=== PATIENT | male | born 2000 | race African-American/Black ===

== ENCOUNTER 2018-05-31 11:32 | Emergency (ER) | payer OTHER, SELFPAY ==
[2018-05-31 11:34] VITALS: BP 128/71; PULSE 70; RESP 18; TEMP 36.4; O2SAT 100; BMI 23.8
--- NOTE | 2018-05-31 11:57 | RAD_ITS ---
STUDY: X-RAY - LEFT SHOULDER REASON FOR EXAM: Male, 17 years old. Pain. TECHNIQUE: 4 view(s) of the shoulder. COMPARISON: None. FINDINGS: Normal glenohumeral articulation. Normal acromioclavicular joint. Normal acromion. Normal humeral head and visualized proximal humerus. The soft tissue structures are unremarkable. There is no demonstrated fracture. Normal visualized pulmonary apex. RAD/Shoulder min 2 Views IMPRESSION: Normal x-ray examination of the shoulder. Electronically Signed: Philip Zaragoza MD at 12:18 EST , Service support ,
--- NOTE | 2018-05-31 13:34 | ED.VISSUMM ---
- ER Visit Summary Date of Service: 05/31/18 Chief Complaint: Left shoulder pain History of Present Illness: The patient is a 17 M with left shoulder pain after weight lifting. He was sent by his PCP for x-rays. The concern was dislocation. Patient feels that his shoulder is back into joint. No weakness or numbness. Physical Examination: Vitals unremarkable. A shoulder exam normal. Sensation normal. Neurovascular intact distally. Good range of motion. Good strength and sensation. Test Results: X-rays negative. Emergency Department Course and Treatment: Patient declined pain medicine. Sling as needed for comfort. Range of motion exercises. Anti-inflammatories. Rest. Follow-up with primary care. Treatment Plan: As above Disposition: Discharge Impression: 1. Left shoulder pain This note was generated with [employer] dictation software. It may contain incorrect words, spelling, and punctuation that were not noted in review of the chart prior to signing ED Disposition - Plan for ED Patient: Chief Complaint: Upper Extremity Injury Referrals: Robin Galaviz DO [Primary Care Provider] -
--- OUTSIDE RECORDS SUMMARY | 2018-08-02 17:20 | XMS RPT_ITS ---
:2000 Author Organization [facility] Care Team Providers Name Role Phone Chente Pelletier Attending Unavailable Robin Galaviz Primary Care Unavailable PROBLEMS PROBLEMS No Problem Records FoundPROCEDURES PROCEDURES No Procedure Records FoundRESULTS RESULTS EMERGENCY DEPARTMENT Observed: 05/31/2018 Status: F Source: [place] SUMMARY 4:14 PM [facility] [place] Medical Records Department [address] [place] [address] Emergency Department Summary 05/31/18 1334 MR#: [id number] Acct: [id number] Name: CARROLL SNOWDEN Rep #: [id number] : 2000 17 From: Chente Pelletier MD PCP: Robin Galaviz DO Status: DEP ER - ER Visit Summary Date of Service: 05/31/18 Chief Complaint: Left shoulder pain History of Present Illness: The patient is a 17 M with left shoulder pain after weight lifting. He was sent by his PCP for x-rays. The concern was dislocation. Patient feels that his shoulder is back into joint. No weakness or numbness. Physical Examination: Vitals unremarkable. A shoulder exam normal. Sensation normal. Neurovascular intact distally. Good range of motion. Good strength and sensation. Test Results: X-rays negative. Emergency Department Course and Treatment: Patient declined pain medicine. Sling as needed for comfort. Range of motion exercises. Anti-inflammatories. Rest. Follow-up with primary care. Treatment Plan: As above Disposition: Discharge Impression: 1. Left shoulder pain This note was generated with [employer] software. It may contain incorrect words, spelling, and punctuation that were not noted in review of the chart prior to signing ED Disposition - Plan for ED Patient: Chief Complaint: Upper Extremity Injury Referrals: Robin Galaviz DO [Primary Care Provider] - What to do if you have Problems For any increased pain, shortness of breath, bleeding, nausea or vomiting, chest pain, or any unexpected problems, contact your Primary Care Provider. Call [facility] ([phone]) or report to the closest Emergency Room. Call 911 if necessary. 05/31/181613 <Electronically signed by Chente Pelletier MD> Date Chente Pelletier MD Cosigner Signature (If Indicated): Date CC: Robin Galaviz DO DISCHARGE INSTRUCTION Observed: 05/31/2018 Status: F Source: [place] 4:14 PM [facility] [place] [facility] Medical Records Department [address] [place] [id number] Discharge Instruction 05/31/18 1336 MR#: [id number] Acct: [id number] Name: CARROLL SNOWDEN Lisette Rep #: [id number] : 2000 17 From: Chente Pelletier MD PCP: Robin Galaviz DO Status: [facility] ER ED Disposition - Plan for ED Patient: Chief Complaint: Upper Extremity Injury Instructions: Shoulder Problems Referrals: Robin Galaviz DO [Primary Care Provider] - What to do if you have Problems For any increased pain, shortness of breath, bleeding, nausea or vomiting, chest pain, or any unexpected problems, contact your Primary Care Provider. Call [facility] ([phone]) or report to the closest Emergency Room. Call 911 if necessary. 05/31/181613 <Electronically signed by Chente Pelletier MD> Date Chente Pelletier MD Cosigner Signature (If Indicated): Date CC: Robin Guillaume DO SHOULDER MIN 2 VIEWS Observed: 05/31/2018 Status: F Source: [place] 11:58 AM [facility] [place] [facility] Imaging Services [address] [place] [address] Shoulder min 2 Views MR#: [id number] Acct: [id number] Name: CARROLL SNOWDEN Rep #: [id number] : 2000 M 17 From: Philip Zaragoza MD PCP: Status: PRE ER Study: Shoulder min 2 Views Date of Exam: 05/31/18 Exam# [id number] Ordering Dr: Chente Pelletier MD STUDY: X-RAY - LEFT SHOULDER REASON FOR EXAM: Male, 17 years old. Pain. TECHNIQUE: 4 view(s) of the shoulder. COMPARISON: None. FINDINGS: Normal glenohumeral articulation. Normal acromioclavicular joint. Normal acromion. Normal humeral head and visualized proximal humerus. The soft tissue structures are unremarkable. There is no demonstrated fracture. Normal visualized pulmonary apex. RAD/Shoulder min 2 Views IMPRESSION: Normal x-ray examination of the shoulder. Electronically Signed: Philip Zaragoza MD at 12:18 EST , Service support , CC: Chente Pelletier MD [employer] Press Operator: Signed ALLERGIES ALLERGIES DATE TYPE / CODE NAME / CODE REACTION SEVERITY SOURCE 05/31/2018 Drug No Known Unknown [facility] Allergy/4160 Allergies/F00 Hospital 53747(SNOMED [id number](RXNOR Repository CT) M) ENCOUNTERS ENCOUNTERS ADMIT/DISCHARGE ACCOUNT ADMITTING ENCOUNTER LOCATION SOURCE NUMBER CLASS 05/31/2018/ [id number] [place] [facility] ing:ED Repository PAYERS PAYERS ENCOUNTER GUARANTOR PAYER SUBSCRIBER SOURCE 05/31/2018 CARROLL [place] Primary MARLYS Pardo [id number] Insurance:[facility] ISIDOB: [facility] [place]: [id number] [id number] Repository [address]Kaf: (216) Date:[phone] (NF) [address]. YONATAN MCCALL [address]MX: 05/31/2018 Secondary NOT GIVENUNK Anika Insurance:SELF PAY [facility] Number: Effective Repository Date:2018-05-31
== END 2018-05-31 13:58 | disposition home or self-care (01) ==
LOC: ED 13:04
PROVIDERS: Emergency Provider Emergency Medicine; Family Provider Family Medicine; PCP Family Medicine
DX: M25.512 Pain in left shoulder (principal)
CPT/HCPCS: 73030; 99283